=== PATIENT | male | born 1975 | race Caucasian/White ===

== ENCOUNTER 2021-03-17 21:00 | Emergency (ER) | payer OTHER ==
[~2021-03-17] VITALS: Ht 188 cm; Wt 78.9 kg
[2021-03-17 21:07] VITALS: BP 132/92
--- NOTE | 2021-03-17 21:07 | NUR ---
Jeanmarie owens in [facility] - 03/17/21 at 2111 by LOBO TO BED AMBULATORY
--- NOTE | 2021-03-17 21:07 | NUR ---
TO LOBBY A/W BED VIA WHEELCHAIR
--- NOTE | 2021-03-17 22:16 | NUR ---
PT BIB SELF FOR C/O BILATERAL LEG PAIN WITH TINGLING X 4 DAYS. PT REPORTS HE FELL DOWN A FLIGHT OF STAIRS X 6 MONTHS AGO AND HAD BILATERAL KNEE SURGERY. PT REPORTS NEW ONSET OF PAIN AND TINGLING THROUGHOUT BILATERAL LEGS. CMS INTACT, CAP REFILL < 3 SECONDS. NO NOTED SWELLING OR REDNESS. SCAR NOTED TO BILATERAL KNEES. PT STATES HE SAW HIS PCP TODAY FOR THIS REASON, WHO GAVE RX FOR CALCIUM, VICODIN AND IBUPROFEN. PT STATES HE IS HERE BECAUSE THE MEDICATIONS ARENT WORKING, PT ALSO REPORTS ETOH INTOXICATION.
--- NOTE | 2021-03-17 23:15 | NUR ---
MARIAELENA KWAW AT BEDSIDE.
--- NOTE | 2021-03-17 23:40 | NUR ---
XRAY AT BEDSIDE.
[2021-03-18] MEDS ORDERED: NAPR-54 PO (00:35)
--- NOTE | 2021-03-18 00:40 | NUR ---
Patient discharged with v/s stable. Written and verbal after care instructions given and explained. Patient alert, oriented and verbalized understanding of instructions. Wheel Chair Assisted TO LOBBY, CONFIRMED PTS DAUGHTER WILL OTOLARYNGOLOGY REP PT. All questions addressed prior to discharge. ID band removed. Patient advised to follow up with PMD. Rx of NAPROSYN given. Patient educated on indication of medication including possible reaction and side effects. Opportunity to ask questions provided and answered.
== END 2021-03-18 00:40 | disposition home or self-care (01) ==
LOC: MED 21:00
DX: S83.92XA Sprain of unspecified site of left knee, initial encounter (principal); F17.210 Nicotine dependence, cigarettes, uncomplicated; W19.XXXA Unspecified fall, initial encounter; Y93.89 Activity, other specified; Y92.89 Other specified places as the place of occurrence of the external cause; Y99.8 Other external cause status
CPT/HCPCS: 73562; 99283